=== PATIENT | female | born 1945 | race Caucasian/White ===

== ENCOUNTER 2022-01-10 16:40 | Emergency (ER) | payer MEDICARE, MEDICAID, SELFPAY ==
[2022-01-10 16:42] VITALS: BP 165/74; PULSE 83; RESP 16; TEMP 36.7; O2SAT 95; BMI 29.5
--- NOTE | 2022-01-10 16:57 | CT_ITS ---
STUDY: CT BRAIN WITHOUT CONTRAST REASON FOR EXAM: Female, 76 years old. Acute confusion RADIATION DOSAGE (If Supplied By Facility): CTDIvol = ( 44.99 ) mGy, DLP = ( 846.73 ) mGycm TECHNIQUE: Transaxial CT imaging of the brain was performed without administration of intravenous contrast material. Individualized dose optimization techniques were used for this CT. COMPARISON: No relevant priors. FINDINGS: Normal soft tissue structures. Normal calvarium. Mild calcific plaquing of cavernous carotids Mild atrophy and periventricular white matter ischemic changes.. Normal basal ganglia and thalami. Normal brainstem. Normal cerebellum. There is no intracranial hemorrhage. There are no findings of an acute ischemic infarction. Postsurgical changes. Mild mucosal thickening of left sphenoid sinus. CT/Brain/Head without Contrast IMPRESSION: Mild atrophy and periventricular white matter ischemic change. No acute bleed. If concern for acute infarct MRI recommended. Electronically Signed: Matias Franklin MD at 18:27 EDT ,
--- NOTE | 2022-01-10 16:58 | EDS_ITS ---
HPI History of Present Illness Chief Complaint: Confusion Detail of Chief Complaint: Patient states left leg pain Informant: patient and friend Onset/Context/Timing Onset: Days (Confusion started several days ago after she was prescribed Flexeril) and Month(s) (The left leg pain has been an issue for months) Context: Sudden Onset Timing: Continuous and Waxes and wanes Quality: Disorientation, difficulty remembering things Location: Not applicable Current Severity: Moderate Maximum Severity: Moderate Worsened by: Nothing per patient Relieved by: Nothing per patient Associated Symptoms Associated Symptoms: Nothing per patient Narrative Narrative: Patient is a 76-year-old woman with history of intermittent chronic left lower extremity pain. She believes she has hypertension. She was seen at [facility]. She was prescribed Flexeril 10 mg 3 times daily on January 06. She denies headache. She denies double vision, blurred vision loss of vision. Denies ringing in ears or decreased hearing. She denies rhinorrhea, congestion postnasal drainage. Denies sore throat. She has had no slurring of her words. She has difficulty remembering what she wants to say. She denies chest pain. She denies respiratory symptoms. She denies nausea, vomiting diarrhea. She denies urologic symptoms. She denies paresthesia, anesthesia or motor weakness. She lives with her older son. Her neighbor who is a good friend drove her to the emergency department. She is a former smoker. Prior similar symptoms: No Recent Illness/Hospitalization: Yes (For chronic left lower extremity pain) [facility] Medical History (Updated 01/10/22 @ 18:[address] Zack Garnica MD) HTN (hypertension) Hypothyroid Medical History unable to obtain unable to obtain Home Medications cyclobenzaprine 10 mg tablet 10 mg PO TID PRN Muscle Pain 01/10/22 [History Last Taken Unknown] Allergy/AdvReac Type Severity Reaction Status Date / Time naproxen [From Aleve] Allergy Angioedema Verified 01/10/22 16:46 Family History unable to obtain unable to obtain Surgical History (Updated 01/10/22 @ 17:06 by Althea Hernandez) History of cholecystectomy Hx of appendectomy Total knee replacement status Surgical History unable to obtain unable to obtain Social History (Updated 01/10/22 @ 17:[address] Zack Garnica MD) household members: family Smoking Status: Former smoker substance use type: does not use ROS ROS ED Review of Systems ROS Unobtainable: other Details: Patient is not a reliable informant. Constitutional Constitutional ED: Denies chills or fever(s) Eyes Eyes: Denies blurry vision, change in vision or diplopia ENT ENT ED: Denies ear pain, rhinorrhea or sore throat Cardiovascular Cardiovascular: Denies chest pain or palpitations Respiratory/Chest Respiratory/Chest: Denies cough, dyspnea or dyspnea on exertion Gastrointestinal Gastrointestinal: Denies abdominal pain, diarrhea, nausea or vomiting Genitourinary Genitourinary ED: Denies dysuria, hematuria or urinary frequency Musculoskeletal Musculoskeletal: Reports other Details: Chronic left lower extremity pain that denies history of PAD or claudication. ; Denies arthralgias, back pain, myalgias or neck pain Neurologic Neurologic: Denies headache(s) or paresthesias Hematologic/Lymphatic Hematologic/Lymphatic: Denies anemia, easy bleeding, easy bruising or lymphadenopathy EXAM Physical Exam Narrative Exam Narrative: Patient is a pleasant elderly woman who is confused. She appears in no distress. Const Vital Signs: 01/10/22 16:42 01/10/22 16:42 01/10/22 17:42 Temperature 98.1 F 98.1 F Temperature Source Temporal Temporal Pulse Rate 83 83 77 Respiratory Rate 16 16 19 H Blood Pressure 165/74 H 165/74 H 182/85 H Blood Pressure Mean 104 104 117 Pulse Ox 95 95 Oxygen Delivery Method Room Air Room Air Positive well nourished and well developed; Negative for cachectic, contractures or unkempt General Appearance ED: well developed and NAD; Negative for unkempt, cachectic, contractures, cyanotic, diaphoretic or pallor Nutritional Appearance: Negative for cachectic HEENT Reports moist mucous membranes HEENT Narrative: Head is atraumatic normocephalic. Ears normal. Nares patent. There is no exudate. Posterior Prantal erythema or exudate. Uvula midline. Eyes PERRL and EOMs intact bilaterally Eyes Narrative: There is no nystagmus. There is no APD. Difficult to see fundi. General Eye ED: Negative for pale conjunctiva or scleral icterus Neck no lymphadenopathy, supple and no JVD Resp normal respiratory effort and clear to auscultation bilaterally Cardio regular rate, regular rhythm, S1 normal heart sound, S2 normal heart sound and no murmurs GI normal to inspection, nondistended, normoactive bowel sounds, non-tender, non- distended and no masses; Negative for hepatosplenomegaly GI Narrative: There is no palpable mass or abdominal bruit. Back/Spine no CVA tenderness Cervical Spine: Negative for cervical spine tenderness Thoracic Spine / Upper Back: Negative for thoracic spinal tenderness Lumbar Spine / Lower Back: Negative for lumbar spinal tenderness Extremity normal to inspection Extremity Narrative: DP and PT pulse are 2+ and symmetric. There is no asymmetry, discoloration, leg vein distention, palpable cord sounds on the distribution deep venous system. General Extremety ED: Negative for edema or tenderness General Extremity: Negative for edema Neuro No oriented x3, No CN's II-XII intact bilaterally and no sensory deficits noted Neuro Narrative: Patient is disoriented to time. Sensorium / Orientation: alert and orientation impaired; Negative for lethargic or stuporous Motor Exam: strength 5/5 throughout Psych Psych Narrative: Patient has a flat affect. Appearance: Negative for unkempt Attitude: No agitated Mood & Affect: Negative for tearful Skin no rashes or lesions noted and no wounds General Skin Exam: Negative for jaundice or pallor MDM MDM MDM Narrative Medical decision making narrative: Patient's confusion started after prescription for cyclobenzaprine. Cyclobenzaprine is on the beers list. Cyclobenzaprine has known adverse reaction causing change in mental status to dementia. Since her neuro exam is nonfocal suspect this is the cause. Will obtain blood work, UA and CT to evaluate for metabolic as well as infectious and organic causes. CT of the head without contrast was independently reviewed by me at 1719. There is no acute abnormality noted. There is no evidence of sinusitis. Awaiting formal read by radiologist. With a negative work-up and onset after patient was prescribed cyclobenzaprine suspect this is the cause. Patient was made aware to discontinue the muscle relaxant. She was informed her confusion may be permanent. Lab Data Attestation: I reviewed the patient's lab results. Labs: Laboratory Results - last 24 hr 01/10/22 01/10/22 01/10/22 17:05 17:05 17:30 WBC 10.3 RBC 4.31 Hgb 13.3 Hct 39.4 MCV 91.4 MCH 30.9 MCHC 33.8 RDW Std Deviation 41.2 RDW Coeff of Yanick 12.3 Plt Count 252 MPV 10.6 Immature Gran % (Auto) 0.600 Neut % (Auto) 86.6 H Lymph % (Auto) 11.5 L [place] % (Auto) 1.1 Eos % (Auto) 0.0 Baso % (Auto) 0.2 Absolute Neuts (auto) 8.9 H Absolute Lymphs (auto) 1.19 Nucleated RBC % 0 Sodium 139 Potassium 4.1 Chloride 105 Carbon Dioxide 27.0 Anion Gap 7 BUN 19 H Creatinine 1.22 H Estim Creat Clear Calc 34.75 Est GFR (MDRD) Af Amer 55 L Est GFR (MDRD) Non-Af 45 L BUN/Creatinine Ratio 15.6 Glucose 396 H Calcium 9.6 Total Bilirubin 0.70 AST 21 ALT 21 Alkaline Phosphatase 136 H Total Protein 7.8 Albumin 3.8 Globulin 4.0 Albumin/Globulin Ratio 1.0 Urine Color Straw Urine Clarity Clear Urine pH 7.0 Ur Specific [place] 1.010 Urine Protein 30 H Urine Glucose (UA) 1000 H Urine Ketones Negative Urine Occult Blood 10 H Urine Nitrite Negative Urine Bilirubin Negative Urine Urobilinogen Normal Ur Leukocyte Esterase Negative Urine RBC 0-5 SEEN Urine WBC 0-5 SEEN Ur Squamous Epith Cells 0-5 SEEN Urine Bacteria RARE Urine Mucus 0 SEEN Discharge Plan Triage Chief Complaint: Confusion ED Provider: Zack Garnica Dx/Rx/DC Orders Clinical Impression: Concussion with mental confusion or disorientation without loss of consciousness, Adverse effect of drug in therapeutic use Instructions: ED Confusion Prescriptions: No Action cyclobenzaprine [Flexeril] 10 mg Tablet 10 mg PO TID PRN (Reason: Muscle Pain) Primary Care Provider: Angelica Canchola Referrals: [facility] Doctor,Out of [NON-STAFF] - 1-2 Weeks Activity Restrictions/Additional Instructions: 1. Discontinue the cyclobenzaprine, muscle relaxant 2. Your confusion is due to an adverse reaction to the cyclobenzaprine. This may be permanent. Disposition Disposition: Home, Self Care
[2022-01-10 17:13] LABS: Absolute Lymphocyte Count 1.19 X10^3/uL (0.83-4.51); Absolute Neutrophil Count 8.9 X10^3/uL (2.0-7.7); Basophil# 0.02 X10^3/uL; Basophil% 0.2 % (0-1); Hematocrit 39.4 % (37-47); Hemoglobin 13.3 g/dL (12.0-15.0); Lymphocyte # 1.19 X10^3/ul (0.83-4.51); Lymphocyte % 11.5 % (19-41); Mean Corp Hgb Conc 33.8 g/dL (32-36); Mean Corpuscular Hgb 30.9 pg (27.0-32.0); Mean Corpuscular Volume 91.4 fL (81-99); Mean Platelet Vol. 10.6 fl (6.2-12.0); Monocyte# 0.11 X10^3/uL; Monocyte% 1.1 % (0-10); NRBC Flagged by Analyzer 0 % (0-5); Neutrophil # 8.93 X10^3/uL (2.7-7.7); Neutrophil % 86.6 % (47-70); Platelet Count 252 K/mm3 (150-450); RBC Distribution Width CV 12.3 % (11.6-14.6); RBC Distribution Width SD 41.2 fl (35.1-43.9); Red Blood Count 4.31 M/mm3 (4.2-5.4); White Blood Count 10.3 K/mm3 (4.4-11.0)
[2022-01-10 17:30] LABS: AST(SGOT) 21 U/L (15-37); Alanine Aminotransfer ALT/SGPT 21 U/L (13-56); Albumin, Serum 3.8 g/dL (3.2-5.0); Alkaline Phosphatase 136 U/L (45-117); Anion Gap 7 (5-15); BUN 19 mg/dL (7-18); BUN/Creat Ratio 15.6 RATIO (10-20); Calcium,Total 9.6 mg/dL (8.5-10.1); Chloride 105 mmol/L (98-107); Creatinine, Serum 1.22 mg/dL (0.55-1.02); EST Glomerular Filtration Rate 45 mL/min (>60); Est Glom Filt Rate - Afr Amer 55 mL/min (>60); Estimated Creatinine Clearance 34.75 ml/min; Glucose 396 mg/dL (74-106); Potassium 4.1 mmol/L (3.5-5.1); Protein, Total 7.8 g/dL (6.4-8.2); Sodium Level 139 mmol/L (136-145)
[2022-01-10 17:36] LABS: Mucous, Urine 0 SEEN /hpf (<or=2+)
[2022-01-10 17:42] VITALS: BP 182/85; PULSE 77; RESP 19
[2022-01-10 17:48] LABS: Color, Urine Straw (Yellow); Glucose, Dipstick 1000 mg/dl (Normal); Ketone-Dipstick Negative (Negative); Leukocyte Esterase-Dipstick Negative /ul (Negative); Nitrite-Dipstick Negative (Negative); Occult Blood-Urine 10 /ul (Negative); Protein-Dipstick 30 mg/dl (Negative); Urine Clarity Clear (Clear); Urine Urobilinogen Normal (Normal)
[2022-01-10 18:08] LABS: Red Blood Cells-Urine 0-5 SEEN /hpf (0-5); White Blood Cells 0-5 SEEN /hpf (0-5)
[2022-01-10 18:09] LABS: Bacteria RARE /hpf (None Seen); Squamous Epithelial Cells - UA 0-5 SEEN /hpf (5-10)
[2022-01-10 18:10] LABS: Urine Bilirubin Dipstick Negative (Negative)
[2022-01-10 18:25] VITALS: BP 175/81; PULSE 63; RESP 16; O2SAT 95
[2022-01-10 18:50] VITALS: BP 164/80
== END 2022-01-10 18:52 | disposition home or self-care (01) ==
PROVIDERS: Emergency Provider Emergency Medicine; PCP Internal Medicine; Visit Provider Emergency Medicine
DX: S06.0X0A Concussion without loss of consciousness, initial encounter (principal); M79.662 Pain in left lower leg; G89.29 Other chronic pain; Z87.891 Personal history of nicotine dependence; X58.XXXA Exposure to other specified factors, initial encounter; T48.1X5A Adverse effect of skeletal muscle relaxants [neuromuscular blocking agents], initial encounter; R41.0 Disorientation, unspecified
CPT/HCPCS: 70450; 80053; 81001; 85025; 99284; A4216

== ENCOUNTER 2024-07-12 16:51 | Observation (INO) | payer MEDICARE, SELFPAY ==
[2024-07-12 16:52] VITALS: BP 182/94; PULSE 89; RESP 18; TEMP 37; O2SAT 94
--- NOTE | 2024-07-12 20:02 | RAD_ITS ---
INDICATION: pain EXAMINATION/TECHNIQUE: X-RAY - XR Spine Thoracic 2 Views COMPARISON: FINDINGS: VERTEBRAE: Preserved vertebral body height. No fracture. No spondylolisthesis. Preservation of the normal thoracic kyphosis. No significant facet arthropathy. Mild spondylosis. DISCS: Disc spaces are maintained. INCLUDED CHEST/ABDOMEN: No acute abnormalities. RAD/Thoracic Spine 2 Views IMPRESSION: No evidence of thoracic spinal fracture or spondylolisthesis. Electronically Signed: Mala Juarez MD at 21:12 EST Reading Location ID and State: [id number] / Tel , Service support ,
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
[2024-07-12] MEDS: Lidocaine 5% Patch 1 PATCH TOPICAL (20:17)
[2024-07-12] MEDS: Acetaminophen 325 MG Tablet 650 MG PO (20:17)
[2024-07-12 20:20] VITALS: BP 171/81; PULSE 79; RESP 18; O2SAT 94; BMI 27.1
--- NOTE | 2024-07-12 20:25 | RAD_ITS ---
INDICATION: pain EXAMINATION/TECHNIQUE: X-RAY - XR Spine Lumbar 2 or 3 Views COMPARISON: FINDINGS: Mild dextroscoliosis. No evidence of fracture or acute subluxation. Chronic loss of height of the L3 vertebral body. Moderate disc space narrowing L3-4. Mild disc space narrowing L4-5. 8 mm anterolisthesis. Facet hypertrophy at L4-5. INCLUDED ABDOMEN: Included bowel gas pattern is non-obstructive. RAD/Lumbar Spine 2 or 3 Views IMPRESSION: No acute fracture. L4-5 anterolisthesis. Mild dextroscoliosis. Electronically Signed: Mala Juarez MD at 21:15 EST Reading Location ID and State: [id number] / Tel , Service support ,
--- NOTE | 2024-07-12 21:00 | CT_ITS ---
STUDY: CT BRAIN WITHOUT CONTRAST REASON FOR EXAM: Female, 79 years old. ams RADIATION DOSAGE (If Supplied By Facility): CTDIvol = ( 44.99 ) mGy, DLP = ( 829.85 ) mGycm TECHNIQUE: Transaxial CT imaging of the brain was performed without administration of intravenous contrast material. Individualized dose optimization techniques were used for this CT. COMPARISON: 01/10/2022. FINDINGS: Normal soft tissue structures. Normal calvarium. Normal size ventricles and extra-axial spaces for the patient''s age. Normal white matter tracts of the cerebral hemispheres. Normal basal ganglia and thalami. Normal brainstem. Normal cerebellum. There is no intracranial hemorrhage. There are no findings of an acute ischemic infarction. Normal visualized paranasal sinuses. CT/Brain/Head without Contrast IMPRESSION: Normal unenhanced CT scan of the brain. Electronically Signed: Mala Juarez MD at 21:59 EST Reading Location ID and State: [id number] / Tel , Service support ,
--- NOTE | 2024-07-12 21:00 | RAD_ITS ---
EXAM: XR CHEST, 1 VIEW CLINICAL INDICATION: ams TECHNIQUE: Frontal view of the chest. COMPARISON: No relevant prior studies available. FINDINGS: LUNGS AND PLEURAL SPACES: Unremarkable. No consolidation or edema. No pneumothorax. No effusion. HEART: Unremarkable. Cardiac silhouette not enlarged. MEDIASTINUM: Central airways and mediastinal contour are unremarkable. BONES/JOINTS: Degenerative changes in the left shoulder. No acute fracture. SOFT TISSUES: Unremarkable. RAD/Chest 1 View (Portable) IMPRESSION: No acute cardiopulmonary abnormality. Electronically Signed: Terrence Gary MD at 22:27 EST ,
[2024-07-12 21:17] LABS: Absolute Lymphocyte Count 1.41 X10^3/uL (0.83-4.51); Absolute Neutrophil Count 12.5 X10^3/uL (2.0-7.7); Basophil# 0.11 X10^3/uL; Basophil% 0.8 % (0-1); Eosinophil# 0.02 X10^3/uL; Eosinophils% 0.1 % (0-5); Hematocrit 40.3 % (37-47); Hemoglobin 13.5 g/dL (12.0-15.0); Lymphocyte # 1.41 X10^3/ul (0.83-4.51); Lymphocyte % 9.6 % (19-41); Mean Corp Hgb Conc 33.5 g/dL (32-36); Mean Corpuscular Hgb 31.7 pg (27.0-32.0); Mean Corpuscular Volume 94.6 fL (81-99); Mean Platelet Vol. 9.7 fl (6.2-12.0); Monocyte# 0.48 X10^3/uL; Monocyte% 3.3 % (0-10); NRBC Flagged by Analyzer 0 % (0-5); Neutrophil # 12.53 X10^3/uL (2.7-7.7); Neutrophil % 85.4 % (47-70); Platelet Count 311 K/mm3 (150-450); RBC Distribution Width CV 13.2 % (11.6-14.6); Red Blood Count 4.26 M/mm3 (4.2-5.4); White Blood Count 14.7 K/mm3 (4.4-11.0)
[2024-07-12 21:34] LABS: AST(SGOT) 19 U/L (15-37); Alanine Aminotransfer ALT/SGPT 14 U/L (13-56); Albumin, Serum 3.4 g/dL (3.2-5.0); Alkaline Phosphatase 83 U/L (45-117); Anion Gap 13 (5-15); BUN 17 mg/dL (7-18); BUN/Creat Ratio 22.5 RATIO (10-20); Bilirubin, Direct 0.48 mg/dL (0.00-0.30); Chloride 103 mmol/L (98-107); Creatinine, Serum 0.75 mg/dL (0.55-1.02); EST Glomerular Filtration Rate 79 mL/min (>60); Est Glom Filt Rate - Afr Amer 95 mL/min (>60); Estimated Creatinine Clearance 55.27 ml/min; Globulin 4.6 g/dL (2.2-4.2); Glucose 138 mg/dL (74-106); Potassium 3.5 mmol/L (3.5-5.1); Sodium Level 136 mmol/L (136-145)
[2024-07-12 21:46] LABS: Mucous, Urine 0 SEEN /hpf (<or=2+)
[2024-07-12] MEDS: 0.9% Normal Saline (1000mL) 1,000 ML 999 ML IV (21:51)
[2024-07-12 21:53] LABS: Color, Urine Yellow (Yellow); Glucose, Dipstick Normal (Normal); Ketone-Dipstick 50 mg/dl (Negative); Leukocyte Esterase-Dipstick 500 /ul (Negative); Nitrite-Dipstick Negative (Negative); Occult Blood-Urine 50 /ul (Negative); Protein-Dipstick 100 mg/dl (Negative); Specific Gravity, Urine 1.025 (1.002-1.030); Urine Clarity Sl. Cloudy (Clear); Urine Urobilinogen 1 mg/dl (Normal)
[2024-07-12 22:00] VITALS: BP 134/65; PULSE 78; RESP 14; O2SAT 97
[2024-07-12 22:03] LABS: Urine Bilirubin Dipstick 1 mg/dL (Negative)
[2024-07-12 22:08] LABS: Bacteria RARE /hpf (None Seen); Red Blood Cells-Urine 0-5 SEEN /hpf (0-5); Squamous Epithelial Cells - UA 0-5 SEEN /hpf (5-10); White Blood Cells 10-25 SEEN /hpf (0-5)
[2024-07-12 22:20] VITALS: BP 141/65; PULSE 73; RESP 14; TEMP 36.8; O2SAT 98
[2024-07-12 22:54] LABS: Allen Test Positive; Base Excess -6 mmol/L (-2 to +2); Bicarbonate 19.8 mmol/L (22-26); Blood Gas Specimen Type ART; Mode Not entered; O2 Delivery Device Room Air; PO2 74 mmHG (75-100); SITE L Radial; SO2 94 % (95-99); Total Carbon Dioxide 21 mmol/L; pCO2 35.8 mmHg (35-45); pH 7.35 (7.35-7.45)
[2024-07-12 22:59] LABS: Ammonia < 10.0 umol/L (11-32)
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
[2024-07-13] VITALS (7 sets, daily range): BP systolic 136–170; BP diastolic 69–87; PULSE 70–86; RESP 14–18; TEMP 36.4–36.6; O2SAT 93–98; BMI 27.0
[2024-07-13] MEDS: Menthol/Lanolin/Calamine/Znox 113 GM Tube 1 APPLIC TOPICAL ×3 (01:38→19:54)
[2024-07-13] MEDS: 0.9% Normal Saline (1000mL) 1,000 ML 75 ML IV (01:38)
[2024-07-13] MEDS: Ceftriaxone 1 GM/50 ML BAG IV ×2 (01:38→21:28)
[2024-07-13] MEDS: NYSTATIN 500,000 UNIT/5 ML UDC 500000 UNIT PO ×4 (01:39→21:28)
[2024-07-13] MEDS: Nystatin Powder 15gm Bottle 1 APPLIC TOPICAL ×3 (01:39→19:54)
[2024-07-13 05:06] LABS: Absolute Lymphocyte Count 1.82 X10^3/uL (0.83-4.51); Absolute Neutrophil Count 8.9 X10^3/uL (2.0-7.7); Basophil# 0.08 X10^3/uL; Basophil% 0.7 % (0-1); Eosinophil# 0.11 X10^3/uL; Hematocrit 39.4 % (37-47); Lymphocyte # 1.82 X10^3/ul (0.83-4.51); Lymphocyte % 15.7 % (19-41); Mean Corpuscular Hgb 31.2 pg (27.0-32.0); Mean Corpuscular Volume 94.5 fL (81-99); Mean Platelet Vol. 10.5 fl (6.2-12.0); Monocyte# 0.63 X10^3/uL; Monocyte% 5.4 % (0-10); NRBC Flagged by Analyzer 0 % (0-5); Neutrophil # 8.87 X10^3/uL (2.7-7.7); Neutrophil % 76.7 % (47-70); Platelet Count 301 K/mm3 (150-450); RBC Distribution Width CV 13.2 % (11.6-14.6); RBC Distribution Width SD 44.7 fl (35.1-43.9); Red Blood Count 4.17 M/mm3 (4.2-5.4); White Blood Count 11.6 K/mm3 (4.4-11.0)
[2024-07-13 05:44] LABS: ALB/GLOB Ratio 0.8 RATIO (0.9-2.4); AST(SGOT) 20 U/L (15-37); Alanine Aminotransfer ALT/SGPT 13 U/L (13-56); Albumin, Serum 3.3 g/dL (3.2-5.0); Alkaline Phosphatase 81 U/L (45-117); Anion Gap 11 (5-15); BUN 14 mg/dL (7-18); BUN/Creat Ratio 20.6 RATIO (10-20); Calcium,Total 9.1 mg/dL (8.5-10.1); Chloride 106 mmol/L (98-107); Creatinine, Serum 0.68 mg/dL (0.55-1.02); EST Glomerular Filtration Rate 88 mL/min (>60); Est Glom Filt Rate - Afr Amer 107 mL/min (>60); Estimated Creatinine Clearance 56.39 ml/min; Globulin 4.3 g/dL (2.2-4.2); Glucose 142 mg/dL (74-106); Phosphorus 2.3 mg/dL (2.5-4.9); Potassium 3.3 mmol/L (3.5-5.1); Protein, Total 7.6 g/dL (6.4-8.2); Sodium Level 137 mmol/L (136-145)
[2024-07-13 06:50] LABS: T4 Free Direct 0.65 ng/dL (0.76-1.46)
[2024-07-13 07:04] LABS: Bedside Glucose 129 mg/dL (74-106)
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
[2024-07-13] MEDS: Enoxaparin 40 MG/0.4 ML Syringe SC (09:25)
[2024-07-13 12:21] LABS: Bedside Glucose 132 mg/dL (74-106)
--- NOTE | 2024-07-13 15:53 | CASEMGMT ---
RN CM into pt room, discussed DC planning options with Pt. Pt would like to go to a SNF and then plans to move in with friends Kerry and Chin. Provided Pt with SNF list, top 2 choices are [facility] and [facility]. Notified WALI.
--- NOTE | 2024-07-13 15:54 | CASEMGMT ---
ANA LAURA CM in to discuss THOMAS form with patient. RN CM explained THOMAS form, patient voiced understanding. Pt signed form and filed in chart. Pt provided with a copy of signed THOMAS form. Patient had no further questions or concerns at this time.
--- NOTE | 2024-07-13 16:09 | CASEMGMT ---
Social Work Referral made via email to WALI MORALES to follow up on Monday. DANE Friend
[2024-07-13 16:56] LABS: Bedside Glucose 128 mg/dL (74-106)
[2024-07-13] MEDS: Acetaminophen 325 MG Tablet 650 MG PO (19:54)
[2024-07-13] MEDS: 0.9% Saline Lock 10 ML Syringe IV (21:28)
[2024-07-13 21:50] LABS: Bedside Glucose 115 mg/dL (74-106)
[2024-07-14 02:00] VITALS: BP 152/81; PULSE 83; RESP 16; TEMP 36.5; O2SAT 97
[2024-07-14 06:37] LABS: Absolute Lymphocyte Count 2.25 X10^3/uL (0.83-4.51); Absolute Neutrophil Count 5.7 X10^3/uL (2.0-7.7); Basophil# 0.09 X10^3/uL; Eosinophil# 0.23 X10^3/uL; Eosinophils% 2.6 % (0-5); Hematocrit 38.6 % (37-47); Hemoglobin 12.7 g/dL (12.0-15.0); Lymphocyte # 2.25 X10^3/ul (0.83-4.51); Lymphocyte % 25.5 % (19-41); Mean Corp Hgb Conc 32.9 g/dL (32-36); Mean Corpuscular Hgb 31.1 pg (27.0-32.0); Mean Corpuscular Volume 94.4 fL (81-99); Monocyte# 0.53 X10^3/uL; NRBC Flagged by Analyzer 0 % (0-5); Neutrophil # 5.68 X10^3/uL (2.7-7.7); Neutrophil % 64.6 % (47-70); Platelet Count 310 K/mm3 (150-450); RBC Distribution Width CV 12.8 % (11.6-14.6); Red Blood Count 4.09 M/mm3 (4.2-5.4); White Blood Count 8.8 K/mm3 (4.4-11.0)
[2024-07-14 06:48] LABS: Bedside Glucose 137 mg/dL (74-106)
[2024-07-14 07:12] LABS: Anion Gap 10 (5-15); BUN 9 mg/dL (7-18); BUN/Creat Ratio 14.6 RATIO (10-20); Calcium,Total 9.1 mg/dL (8.5-10.1); Chloride 104 mmol/L (98-107); Creatinine, Serum 0.62 mg/dL (0.55-1.02); EST Glomerular Filtration Rate 99 mL/min (>60); Est Glom Filt Rate - Afr Amer 120 mL/min (>60); Estimated Creatinine Clearance 56.39 ml/min; Glucose 124 mg/dL (74-106); Phosphorus 1.8 mg/dL (2.5-4.9); Potassium 3.2 mmol/L (3.5-5.1); Sodium Level 135 mmol/L (136-145)
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
[2024-07-14 08:56] VITALS: BP 163/74; PULSE 98; RESP 18; TEMP 36.4; O2SAT 97
[2024-07-14] MEDS: NYSTATIN 500,000 UNIT/5 ML UDC 500000 UNIT PO ×4 (09:00→20:47)
[2024-07-14] MEDS: Potassium Chloride Oral Tablet 20 MEQ 40 MEQ PO (09:00)
[2024-07-14] MEDS: Enoxaparin 40 MG/0.4 ML Syringe SC (09:00)
[2024-07-14] MEDS: Nystatin Powder 15gm Bottle 1 APPLIC TOPICAL ×2 (09:01→20:47)
[2024-07-14] MEDS: Menthol/Lanolin/Calamine/Znox 113 GM Tube 1 APPLIC TOPICAL ×2 (09:01→20:47)
[2024-07-14] MEDS: Na Biphos/Potassium Phosphate PACKET 1 PACKET PO ×2 (09:07→20:48)
[2024-07-14] MEDS: amLODIPine 5 MG Tablet PO (10:06)
[2024-07-14 12:11] LABS: Bedside Glucose 143 mg/dL (74-106)
[2024-07-14 14:09] VITALS: BP 150/74; PULSE 94; RESP 18; TEMP 36.6; O2SAT 96
[2024-07-14] MEDS: Acetaminophen 325 MG Tablet 650 MG PO (16:22)
[2024-07-14] MEDS: Potassium Chloride Oral Tablet 20 MEQ PO (16:22)
[2024-07-14 16:47] LABS: Bedside Glucose 137 mg/dL (74-106)
[2024-07-14 20:45] VITALS: BP 154/89; PULSE 82; RESP 16; TEMP 36.6; O2SAT 94
[2024-07-14] MEDS: Ceftriaxone 1 GM/50 ML BAG IV (21:03)
[2024-07-14] MEDS: 0.9% Saline Lock 10 ML Syringe IV (21:04)
[2024-07-14 22:51] LABS: Bedside Glucose 122 mg/dL (74-106)
[2024-07-15] MEDS: Acetaminophen 325 MG Tablet 650 MG PO ×2 (02:18→11:53)
[2024-07-15 02:30] VITALS: BP 144/94; PULSE 80; RESP 16; TEMP 36.6; O2SAT 95
[2024-07-15 06:42] LABS: Bedside Glucose 132 mg/dL (74-106)
[2024-07-15 06:46] LABS: Absolute Lymphocyte Count 2.04 X10^3/uL (0.83-4.51); Basophil# 0.08 X10^3/uL; Basophil% 0.9 % (0-1); Eosinophil# 0.27 X10^3/uL; Hemoglobin 12.7 g/dL (12.0-15.0); Lymphocyte # 2.04 X10^3/ul (0.83-4.51); Lymphocyte % 22.9 % (19-41); Mean Corp Hgb Conc 33.4 g/dL (32-36); Mean Corpuscular Hgb 31.1 pg (27.0-32.0); Mean Corpuscular Volume 93.1 fL (81-99); Mean Platelet Vol. 10.1 fl (6.2-12.0); Monocyte# 0.54 X10^3/uL; Monocyte% 6.1 % (0-10); NRBC Flagged by Analyzer 0 % (0-5); Neutrophil # 5.95 X10^3/uL (2.7-7.7); Neutrophil % 66.8 % (47-70); Platelet Count 315 K/mm3 (150-450); RBC Distribution Width CV 13.1 % (11.6-14.6); RBC Distribution Width SD 44.4 fl (35.1-43.9); Red Blood Count 4.08 M/mm3 (4.2-5.4); White Blood Count 8.9 K/mm3 (4.4-11.0)
[2024-07-15 07:11] LABS: Anion Gap 6 (5-15); BUN 8 mg/dL (7-18); BUN/Creat Ratio 11.7 RATIO (10-20); Chloride 106 mmol/L (98-107); Creatinine, Serum 0.68 mg/dL (0.55-1.02); EST Glomerular Filtration Rate 88 mL/min (>60); Est Glom Filt Rate - Afr Amer 106 mL/min (>60); Estimated Creatinine Clearance 56.39 ml/min; Glucose 139 mg/dL (74-106); Potassium 3.3 mmol/L (3.5-5.1); Sodium Level 136 mmol/L (136-145)
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
[2024-07-15 07:31] VITALS: BP 134/75; PULSE 79; RESP 16; TEMP 36.7; O2SAT 95
[2024-07-15] MEDS: Potassium Chloride Oral Tablet 20 MEQ 40 MEQ PO (07:43)
[2024-07-15] MEDS: Potassium Chloride Oral Tablet 20 MEQ PO (07:43)
[2024-07-15 07:55] VITALS: O2SAT 92
[2024-07-15] MEDS: Na Biphos/Potassium Phosphate PACKET 1 PACKET PO (10:22)
[2024-07-15] MEDS: NYSTATIN 500,000 UNIT/5 ML UDC 500000 UNIT PO ×2 (10:22→13:35)
[2024-07-15] MEDS: Enoxaparin 40 MG/0.4 ML Syringe SC (10:22)
[2024-07-15] MEDS: Nystatin Powder 15gm Bottle 1 APPLIC TOPICAL (10:23)
[2024-07-15] MEDS: Menthol/Lanolin/Calamine/Znox 113 GM Tube 1 APPLIC TOPICAL (10:23)
[2024-07-15] MEDS: amLODIPine 5 MG Tablet PO (10:26)
[2024-07-15] MEDS: Insulin Lispro 100 UNIT/ML INSULN.PEN SC (11:49)
[2024-07-15 12:14] LABS: Bedside Glucose 166 mg/dL (74-106)
[2024-07-15 13:31] VITALS: BP 134/61; PULSE 83; RESP 16; TEMP 36.6; O2SAT 93
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
--- NOTE | 2024-07-15 14:43 | CASEMGMT ---
Social Work- SW received notice of precert. Physician updated and feels pt is medically ready for discharge. SW faxed documentation to TCU. SW updated pt and left a voicemail for pt son to update. Plan: TCU; skilled level of care IGNACIO Ramos
== END 2024-07-15 15:53 | disposition skilled nursing facility (03) ==
LOC: ED 23:24 → MS3 07-13 00:16
PROVIDERS: Admitting Provider Internal Medicine; Emergency Provider Emergency Medicine; PCP Internal Medicine; Referring Provider Emergency Medicine; Visit Provider Internal Medicine
DX: T50.901A Poisoning by unspecified drugs, medicaments and biological substances, accidental (unintentional), initial encounter (principal); E11.9 Type 2 diabetes mellitus without complications; S29.019A Strain of muscle and tendon of unspecified wall of thorax, initial encounter; S39.012A Strain of muscle, fascia and tendon of lower back, initial encounter; D72.829 Elevated white blood cell count, unspecified; E87.6 Hypokalemia; Z87.891 Personal history of nicotine dependence; I10 Essential (primary) hypertension; E80.6 Other disorders of bilirubin metabolism; V48.5XXA Car driver injured in noncollision transport accident in traffic accident, initial encounter; Z79.899 Other long term (current) drug therapy; Z79.84 Long term (current) use of oral hypoglycemic drugs; N30.00 Acute cystitis without hematuria; G92.8 Other toxic encephalopathy; E03.9 Hypothyroidism, unspecified
CPT/HCPCS: 36415; 36600; 70450; 71045; 72070; 72100; 80048; 80053; 80076; 81001; 82140; 82803; 82962; 83735; 84100; 84439; 84443; 85025; 87077; 87086; 87088; 96361; 96365; 96366; 96372; 97162; 97165; 97535; 99221; 99285; A4216; G0378

== ENCOUNTER 2024-07-15 16:02 | Inpatient (IN) | payer MEDICARE, SELFPAY ==
[2024-07-15 16:17] VITALS: BP 145/78; PULSE 84; RESP 16; RESP 18; TEMP 36.4; O2SAT 95; BMI 25.9; BMI 26.7
[2024-07-15 17:00] LABS: Bedside Glucose 148 mg/dL (74-106)
[2024-07-15] MEDS: 0.9% Saline Lock 10 ML Syringe IV (19:49)
[2024-07-15] MEDS: Potassium Chloride Oral Tablet 20 MEQ PO (19:49)
[2024-07-15] MEDS: metFORMIN HCl 1,000 MG Tablet 1000 MG PO (19:50)
[2024-07-15] MEDS: NYSTATIN 500,000 UNIT/5 ML UDC 500000 UNIT PO (19:51)
[2024-07-15] MEDS: Clotrimazole/Betamethasone 1 Tube 1 APPLIC TOPICAL (19:52)
[2024-07-15] MEDS: Na Biphos/Potassium Phosphate PACKET 1 PACKET PO (19:52)
[2024-07-15] MEDS: Acetaminophen 325 MG Tablet 650 MG PO (19:55)
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
[2024-07-15 21:32] LABS: Bedside Glucose 183 mg/dL (74-106)
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
--- NOTE | 2024-07-16 02:33 | NURSING ---
This nurse received call from Jim Charles, patient's son, at approximately 0140 this morning. Patient questioned how his mother was doing. This nurse reported patient was adjusting well and has been resting throughout the shift with no complaints. Son replied, well I know that, did they figure out what's going on. This nurse reported to son that she was not his mother's nurse and asked him if he would like to talk directly to her nurse for better assistance to any questions he has. Son replied, Well yeah, and snickered at this nurse. This nurse then put patient on hold and communicated to JE Saldivar, that the patient's son is requesting to speak with him. This nurse overheard MANAGER OF CREATIVE SERVICES's attempt to answer son's questions, but he was frequently interrupted by patient's son. Son dissatisfied with answers and began asking for first and last names of staff including doctor scheduler conveyor, and then he concluded the call.
[2024-07-16] MEDS: Enoxaparin 40 MG/0.4 ML Syringe SC (05:42)
[2024-07-16] MEDS: NYSTATIN 500,000 UNIT/5 ML UDC 500000 UNIT PO ×4 (05:42→21:34)
[2024-07-16] MEDS: Acetaminophen 500 MG Tablet 1000 MG PO ×3 (05:49→21:37)
[2024-07-16 06:11] LABS: Absolute Lymphocyte Count 1.85 X10^3/uL (0.83-4.51); Absolute Neutrophil Count 4.7 X10^3/uL (2.0-7.7); Basophil# 0.08 X10^3/uL; Basophil% 1.1 % (0-1); Eosinophil# 0.27 X10^3/uL; Eosinophils% 3.7 % (0-5); Hematocrit 40.8 % (37-47); Hemoglobin 13.4 g/dL (12.0-15.0); Lymphocyte # 1.85 X10^3/ul (0.83-4.51); Lymphocyte % 25.2 % (19-41); Mean Corp Hgb Conc 32.8 g/dL (32-36); Mean Corpuscular Hgb 31.4 pg (27.0-32.0); Mean Corpuscular Volume 95.6 fL (81-99); Mean Platelet Vol. 10.2 fl (6.2-12.0); Monocyte# 0.44 X10^3/uL; NRBC Flagged by Analyzer 0 % (0-5); Neutrophil # 4.66 X10^3/uL (2.7-7.7); Neutrophil % 63.3 % (47-70); Platelet Count 321 K/mm3 (150-450); RBC Distribution Width CV 13.3 % (11.6-14.6); RBC Distribution Width SD 46.5 fl (35.1-43.9); Red Blood Count 4.27 M/mm3 (4.2-5.4); White Blood Count 7.4 K/mm3 (4.4-11.0)
[2024-07-16 06:14] LABS: Anion Gap 4 (5-15); BUN 9 mg/dL (7-18); BUN/Creat Ratio 11.3 RATIO (10-20); Calcium,Total 9.4 mg/dL (8.5-10.1); Chloride 106 mmol/L (98-107); EST Glomerular Filtration Rate 74 mL/min (>60); Est Glom Filt Rate - Afr Amer 89 mL/min (>60); Estimated Creatinine Clearance 57.35 ml/min; Glucose 155 mg/dL (74-106); Potassium 4.1 mmol/L (3.5-5.1); Sodium Level 136 mmol/L (136-145)
[2024-07-16 06:33] LABS: Bedside Glucose 166 mg/dL (74-106)
[2024-07-16 08:11] VITALS: O2SAT 95
[2024-07-16] MEDS: Clotrimazole/Betamethasone 1 Tube 1 APPLIC TOPICAL ×2 (09:29→21:34)
[2024-07-16] MEDS: metFORMIN HCl 1,000 MG Tablet 1000 MG PO ×2 (09:33→17:40)
[2024-07-16] MEDS: Na Biphos/Potassium Phosphate PACKET 1 PACKET PO ×2 (09:34→21:34)
[2024-07-16] MEDS: FLUCONAZOLE 150 MG TABLET PO (09:34)
[2024-07-16] MEDS: Potassium Chloride Oral Tablet 20 MEQ PO ×2 (09:34→17:40)
[2024-07-16] MEDS: Tuberculin,Purif.prot.deriv. 50 TU/ML Vial 0.1 ML ID (09:43)
[2024-07-16] MEDS: FLU VACCINE **HIGH DOSE** TV 24-25 180 MCG/0.5 ML SYRINGE IM (09:45)
[2024-07-16] MEDS: 0.9% Saline Lock 10 ML Syringe IV (09:49)
[2024-07-16 09:54] VITALS: BP 127/71; PULSE 89; RESP 16; O2SAT 96
[2024-07-16 10:15] VITALS: PULSE 81; RESP 18; O2SAT 92
--- NOTE | 2024-07-16 10:19 | NURSING ---
FLU VACCINE GIVEN IN LT DELT. PT TOLERATED WELL. WILL CONTINUE TO MONITOR.
[2024-07-16 10:41] VITALS: BMI 26.2
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
[2024-07-16 11:25] LABS: Bedside Glucose 193 mg/dL (74-106)
[2024-07-16 14:55] VITALS: TEMP 36.6
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
[2024-07-16] MEDS: COVID VAC 24-25 (12UP)(MODERNA)/PF 50 MCG/0.5 ML SYRINGE IM (17:37)
[2024-07-16 17:39] LABS: Bedside Glucose 125 mg/dL (74-106)
--- NOTE | 2024-07-16 17:43 | NURSING ---
PT RECEIVED COVID VACCINE IN RT DELT.PT TOLERATED WELL. WILL CONTINUE TO MONITOR.
[2024-07-16 20:57] LABS: Hemoglobin A1c 6.6 % (3.8-5.6)
[2024-07-16 22:08] LABS: Bedside Glucose 108 mg/dL (74-106)
[2024-07-17] MEDS: Acetaminophen 500 MG Tablet 1000 MG PO ×3 (06:04→21:18)
[2024-07-17] MEDS: NYSTATIN 500,000 UNIT/5 ML UDC 500000 UNIT PO ×4 (06:06→21:17)
[2024-07-17] MEDS: Enoxaparin 40 MG/0.4 ML Syringe SC (06:06)
[2024-07-17 06:21] LABS: Bedside Glucose 136 mg/dL (74-106)
[2024-07-17] MEDS: Na Biphos/Potassium Phosphate PACKET 1 PACKET PO ×2 (09:11→21:17)
[2024-07-17] MEDS: Clotrimazole/Betamethasone 1 Tube 1 APPLIC TOPICAL ×2 (09:11→21:17)
[2024-07-17] MEDS: Potassium Chloride Oral Tablet 20 MEQ PO ×2 (09:12→17:17)
[2024-07-17] MEDS: metFORMIN HCl 1,000 MG Tablet 1000 MG PO ×2 (09:12→17:17)
[2024-07-17] MEDS: FLUCONAZOLE 150 MG TABLET PO (09:13)
[2024-07-17 09:17] VITALS: BP 125/63; PULSE 90; RESP 18; O2SAT 94
[2024-07-17 11:50] LABS: Bedside Glucose 160 mg/dL (74-106)
--- NOTE | 2024-07-17 13:51 | NURSING ---
Flat Cutter Note; Activity Asset: Xiomara Robles is independent in her choice of group/independent activities w/reminders. She has a lot of family and friends visiting and they brought her word puzzles, books and personal items from home. She stated she will read her book, watch tv and welcomes visit from the radiotelegraph operator and therapy dog. Staff will encourage social activities, remind her of group/in room activities and respect her right to say no.
[2024-07-17 16:00] VITALS: TEMP 36.3
[2024-07-17 17:08] LABS: Bedside Glucose 129 mg/dL (74-106)
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
[2024-07-17 18:00] VITALS: PULSE 95; RESP 18; O2SAT 97
[2024-07-17 21:31] LABS: Bedside Glucose 128 mg/dL (74-106)
[2024-07-18] MEDS: NYSTATIN 500,000 UNIT/5 ML UDC 500000 UNIT PO ×4 (05:24→21:01)
[2024-07-18] MEDS: Enoxaparin 40 MG/0.4 ML Syringe SC (05:25)
[2024-07-18] MEDS: Acetaminophen 500 MG Tablet 1000 MG PO ×3 (05:29→21:12)
[2024-07-18 07:02] LABS: Bedside Glucose 147 mg/dL (74-106)
[2024-07-18 09:00] VITALS: BP 127/67; PULSE 86; RESP 16; TEMP 36.5; O2SAT 95
[2024-07-18] MEDS: metFORMIN HCl 1,000 MG Tablet 1000 MG PO ×2 (09:28→17:43)
[2024-07-18] MEDS: Na Biphos/Potassium Phosphate PACKET 1 PACKET PO ×2 (09:29→21:01)
[2024-07-18] MEDS: FLUCONAZOLE 150 MG TABLET PO (09:29)
[2024-07-18] MEDS: Potassium Chloride Oral Tablet 20 MEQ PO ×2 (09:29→17:42)
[2024-07-18] MEDS: Clotrimazole/Betamethasone 1 Tube 1 APPLIC TOPICAL ×2 (09:29→21:02)
[2024-07-18 11:49] LABS: Bedside Glucose 132 mg/dL (74-106)
--- NOTE | 2024-07-18 15:56 | CHAPLAIN ---
Type of Pastoral Visit ___ Initial Visit _x__ Follow-up Visit ___ On-call Visit ___ General Patient Visit ___ Spiritual Assessment ___ Family Conference ___ Bereavement ___ Rapid Response ___ Code Blue ___ Other (describe below) Pastoral Care Referral From _x__ Patient ___ Family ___ Nurse ___ Physician ___ Aurist ___ Relief Master ___ Other (describe below) Sacrament/Intervention _x__ Active listening ___ Anointing ___ Latter Day ___ Bereavement ___ Communion ___ Padmini exploration ___ ___ Life review ___ Prayer ___ Reconciliation ___ Sacrament of Sick _x__ Supportive presence ___ Wedding ___ Other (describe below) Pastoral Comments follow up to patient that was seen a couple of days ago in [facility]; pt is pleased to have arrived in TCU so soon and has started her therapy; pt admits to being very tired the first day but is encouraged by progress on the second day; pt anticipates having friends visit today and she is looking forward; pt smiles and talks with a positive attitude
--- NOTE | 2024-07-18 16:34 | CASEMGMT ---
Addendum entered by Humaira Whyte 07/23/24 13:11: Medicaid pending number received: [id number] Original Note: Social Work SW referred to Jemima at [facility] and she will visit with pt tomorrow to address Medicaid eligibility. Humaira Whyte MSW BIOFUELS PRODUCTION MANAGER
[2024-07-18 16:49] LABS: Bedside Glucose 104 mg/dL (74-106)
[2024-07-18 21:47] LABS: Bedside Glucose 108 mg/dL (74-106)
[2024-07-19] MEDS: NYSTATIN 500,000 UNIT/5 ML UDC 500000 UNIT PO ×4 (05:39→20:31)
[2024-07-19] MEDS: Enoxaparin 40 MG/0.4 ML Syringe SC (05:39)
[2024-07-19] MEDS: Acetaminophen 500 MG Tablet 1000 MG PO ×3 (05:39→20:36)
[2024-07-19 06:21] LABS: Bedside Glucose 108 mg/dL (74-106)
[2024-07-19 09:00] VITALS: BP 118/68; PULSE 80; RESP 16; TEMP 36.2; O2SAT 97
[2024-07-19] MEDS: Na Biphos/Potassium Phosphate PACKET 1 PACKET PO ×2 (09:09→20:31)
[2024-07-19] MEDS: Potassium Chloride Oral Tablet 20 MEQ PO ×2 (09:09→16:55)
[2024-07-19] MEDS: metFORMIN HCl 1,000 MG Tablet 1000 MG PO ×2 (09:09→16:55)
[2024-07-19] MEDS: FLUCONAZOLE 150 MG TABLET PO (09:09)
[2024-07-19] MEDS: Clotrimazole/Betamethasone 1 Tube 1 APPLIC TOPICAL ×2 (09:12→20:32)
--- NOTE | 2024-07-19 11:46 | CASEMGMT ---
Social Work SW completed referral for Care Coordination Program through [facility] via website. JAYLON ParikhW
[2024-07-19 11:55] LABS: Bedside Glucose 111 mg/dL (74-106)
[2024-07-19 16:55] LABS: Bedside Glucose 106 mg/dL (74-106)
[2024-07-19 21:53] LABS: Bedside Glucose 121 mg/dL (74-106)
[2024-07-20] MEDS: Acetaminophen 500 MG Tablet 1000 MG PO ×3 (05:42→21:18)
[2024-07-20] MEDS: NYSTATIN 500,000 UNIT/5 ML UDC 500000 UNIT PO ×4 (05:42→21:13)
[2024-07-20] MEDS: Enoxaparin 40 MG/0.4 ML Syringe SC (05:42)
[2024-07-20 06:18] LABS: Bedside Glucose 120 mg/dL (74-106)
[2024-07-20] MEDS: metFORMIN HCl 1,000 MG Tablet 1000 MG PO ×2 (09:45→17:39)
[2024-07-20] MEDS: Potassium Chloride Oral Tablet 20 MEQ PO ×2 (09:45→17:39)
[2024-07-20] MEDS: Na Biphos/Potassium Phosphate PACKET 1 PACKET PO ×2 (09:45→21:13)
[2024-07-20] MEDS: FLUCONAZOLE 150 MG TABLET PO (09:45)
[2024-07-20 09:58] VITALS: BP 132/73; PULSE 84; RESP 18; O2SAT 95
[2024-07-20] MEDS: Clotrimazole/Betamethasone 1 Tube 1 APPLIC TOPICAL ×2 (10:32→21:13)
[2024-07-20 12:29] LABS: Bedside Glucose 103 mg/dL (74-106)
[2024-07-20 13:15] VITALS: TEMP 36.9
[2024-07-20 16:47] LABS: Bedside Glucose 119 mg/dL (74-106)
[2024-07-20 21:09] LABS: Bedside Glucose 143 mg/dL (74-106)
[2024-07-21] MEDS: Enoxaparin 40 MG/0.4 ML Syringe SC (06:15)
[2024-07-21] MEDS: NYSTATIN 500,000 UNIT/5 ML UDC 500000 UNIT PO ×4 (06:15→20:39)
[2024-07-21] MEDS: Acetaminophen 500 MG Tablet 1000 MG PO ×2 (06:16→17:09)
[2024-07-21 06:23] LABS: Bedside Glucose 96 mg/dL (74-106)
[2024-07-21] MEDS: metFORMIN HCl 1,000 MG Tablet 1000 MG PO (09:03)
[2024-07-21] MEDS: Potassium Chloride Oral Tablet 20 MEQ PO ×2 (09:04→17:10)
[2024-07-21] MEDS: FLUCONAZOLE 150 MG TABLET PO (09:04)
[2024-07-21] MEDS: Clotrimazole/Betamethasone 1 Tube 1 APPLIC TOPICAL ×2 (09:04→20:39)
[2024-07-21] MEDS: Na Biphos/Potassium Phosphate PACKET 1 PACKET PO ×2 (09:05→20:39)
[2024-07-21 09:09] VITALS: BP 130/68; PULSE 70; RESP 18; O2SAT 97
[2024-07-21 11:55] LABS: Bedside Glucose 99 mg/dL (74-106)
[2024-07-21 13:41] VITALS: TEMP 36.4
[2024-07-21 17:21] LABS: Bedside Glucose 115 mg/dL (74-106)
[2024-07-21] MEDS: metFORMIN HCl 500 MG Tablet PO (17:45)
[2024-07-21 21:39] LABS: Bedside Glucose 137 mg/dL (74-106)
[2024-07-22] MEDS: Acetaminophen 500 MG Tablet 1000 MG PO ×2 (01:21→18:44)
[2024-07-22] MEDS: Enoxaparin 40 MG/0.4 ML Syringe SC (06:01)
[2024-07-22] MEDS: NYSTATIN 500,000 UNIT/5 ML UDC 500000 UNIT PO ×4 (06:01→21:10)
[2024-07-22 06:15] LABS: Bedside Glucose 104 mg/dL (74-106)
[2024-07-22] MEDS: Potassium Chloride Oral Tablet 20 MEQ PO ×2 (08:54→17:33)
[2024-07-22] MEDS: FLUCONAZOLE 150 MG TABLET PO (08:54)
[2024-07-22] MEDS: Na Biphos/Potassium Phosphate PACKET 1 PACKET PO ×2 (08:54→21:10)
[2024-07-22] MEDS: Clotrimazole/Betamethasone 1 Tube 1 APPLIC TOPICAL ×2 (08:55→21:10)
[2024-07-22] MEDS: metFORMIN HCl 500 MG Tablet PO ×2 (08:55→17:34)
--- NOTE | 2024-07-22 09:08 | NURSING ---
Associate Director Of Biostatistics Note; MDS for 07/22/2024 Complete
[2024-07-22 10:00] VITALS: BP 124/61; PULSE 74; RESP 16; TEMP 36.3; O2SAT 95
[2024-07-22 11:37] LABS: Bedside Glucose 121 mg/dL (74-106)
[2024-07-22 16:44] LABS: Bedside Glucose 112 mg/dL (74-106)
[2024-07-22 21:00] VITALS: PULSE 76; RESP 16; O2SAT 93
[2024-07-22 21:29] LABS: Bedside Glucose 98 mg/dL (74-106)
[2024-07-23] MEDS: Enoxaparin 40 MG/0.4 ML Syringe SC (05:33)
[2024-07-23] MEDS: NYSTATIN 500,000 UNIT/5 ML UDC 500000 UNIT PO ×4 (05:35→20:46)
[2024-07-23 05:56] LABS: Absolute Lymphocyte Count 2.78 X10^3/uL (0.83-4.51); Absolute Neutrophil Count 3.1 X10^3/uL (2.0-7.7); Basophil# 0.09 X10^3/uL; Basophil% 1.4 % (0-1); Eosinophil# 0.19 X10^3/uL; Eosinophils% 2.9 % (0-5); Hematocrit 39.5 % (37-47); Hemoglobin 13.3 g/dL (12.0-15.0); Lymphocyte # 2.78 X10^3/ul (0.83-4.51); Lymphocyte % 42.7 % (19-41); Mean Corp Hgb Conc 33.7 g/dL (32-36); Mean Corpuscular Hgb 31.7 pg (27.0-32.0); Mean Corpuscular Volume 94.3 fL (81-99); Mean Platelet Vol. 10.1 fl (6.2-12.0); Monocyte# 0.31 X10^3/uL; Monocyte% 4.8 % (0-10); NRBC Flagged by Analyzer 0 % (0-5); Neutrophil # 3.11 X10^3/uL (2.7-7.7); Neutrophil % 47.7 % (47-70); Platelet Count 320 K/mm3 (150-450); RBC Distribution Width CV 13.3 % (11.6-14.6); RBC Distribution Width SD 45.5 fl (35.1-43.9); Red Blood Count 4.19 M/mm3 (4.2-5.4); White Blood Count 6.5 K/mm3 (4.4-11.0)
[2024-07-23 06:13] LABS: Bedside Glucose 116 mg/dL (74-106)
[2024-07-23 06:27] LABS: Anion Gap 6 (5-15); BUN 12 mg/dL (7-18); BUN/Creat Ratio 14.5 RATIO (10-20); Calcium,Total 9.8 mg/dL (8.5-10.1); Chloride 105 mmol/L (98-107); Creatinine, Serum 0.83 mg/dL (0.55-1.02); EST Glomerular Filtration Rate 71 mL/min (>60); Est Glom Filt Rate - Afr Amer 85 mL/min (>60); Glucose 109 mg/dL (74-106); Potassium 3.9 mmol/L (3.5-5.1); Sodium Level 134 mmol/L (136-145)
[2024-07-23 08:34] VITALS: BP 109/81; PULSE 82; RESP 18; TEMP 35.7; O2SAT 97
[2024-07-23] MEDS: FLUCONAZOLE 150 MG TABLET PO (08:37)
[2024-07-23] MEDS: metFORMIN HCl 500 MG Tablet PO ×2 (08:37→18:30)
[2024-07-23] MEDS: Potassium Chloride Oral Tablet 20 MEQ PO ×2 (08:37→18:31)
[2024-07-23] MEDS: Na Biphos/Potassium Phosphate PACKET 1 PACKET PO ×2 (08:37→20:46)
[2024-07-23] MEDS: Clotrimazole/Betamethasone 1 Tube 1 APPLIC TOPICAL ×2 (08:37→20:46)
[2024-07-23] MEDS: Acetaminophen 500 MG Tablet 1000 MG PO ×2 (09:45→20:50)
[2024-07-23] MEDS: Tuberculin,Purif.prot.deriv. 50 TU/ML Vial 0.1 ML ID (10:33)
[2024-07-23 11:41] VITALS: BMI 25.5
--- NOTE | 2024-07-23 13:40 | MDS.RN ---
Information for the MDS was obtained from review of the clinical record, interview of resident, staff, and direct observation of resident?s care.
[2024-07-23 16:53] LABS: Bedside Glucose 131 mg/dL (74-106)
[2024-07-24] MEDS: Acetaminophen 500 MG Tablet 1000 MG PO ×2 (02:50→22:31)
[2024-07-24] MEDS: Enoxaparin 40 MG/0.4 ML Syringe SC (05:44)
[2024-07-24] MEDS: NYSTATIN 500,000 UNIT/5 ML UDC 500000 UNIT PO ×4 (05:44→22:31)
[2024-07-24 06:25] LABS: Bedside Glucose 104 mg/dL (74-106)
[2024-07-24] MEDS: Potassium Chloride Oral Tablet 20 MEQ PO ×2 (08:39→17:22)
[2024-07-24] MEDS: metFORMIN HCl 500 MG Tablet PO ×2 (08:40→17:22)
[2024-07-24] MEDS: FLUCONAZOLE 150 MG TABLET PO (08:40)
[2024-07-24] MEDS: Clotrimazole/Betamethasone 1 Tube 1 APPLIC TOPICAL ×2 (08:40→22:32)
[2024-07-24] MEDS: Na Biphos/Potassium Phosphate PACKET 1 PACKET PO ×2 (08:41→22:31)
[2024-07-24 08:46] VITALS: BP 124/62; PULSE 70; RESP 18; O2SAT 99
--- NOTE | 2024-07-24 11:04 | NURSING ---
PER REPORT PT IN MORE PAIN AFTER THERAPY. TALKED TO PT AND ASKED HER IF SHE FEELS IF SHE NEEDS A LITTLE MORE PAIN MED DUE TO THE PAIN. PT STATED NO MENG FINE WITH THE HEAT/ICE AND WHAT EVER THERAPY PUTS ON ME THAT HAS LIKE THE LITTLE FINGERS TO HELP MESSAGE AREA. WILL CONTINUE TO MONITOR.
--- NOTE | 2024-07-24 11:11 | CASEMGMT ---
Plan of care meeting held with pt present. Therapy/oil and gas drafter/activities provided updates on progress. Pt is making progress with therapy. SW updated that MMO MCR next review is tomorrow and that insurance is expected to issues a last covered day. Team is recommending SNF placement. Pt adamantly stating she will not go to a SNF. Pt states that she has an aunt, Josefina Melendez, who is the same age as pt. Josefina's last week and Josefina is offering for pt to come and live with her. Josefina lives in [place], [place]. SW requested that pt and SW meet and place call to Josefina to discuss discharge plan. Pt will need help with medication management and finances. Pt needs some help with lower body dressing and occasionally needs help getting in and out of bed. Pt is able to complete toileting and bathing needs. Pt will not be allowed to drive once home. Pt has medical equipment at home that was her husbands, but has never gotten a walker herself from insurance. SW will meet with pt at a later time and attempt to call Josefina about discharge plan. IGNACIO Parrish
[2024-07-24] MEDS: Pneumococcal Vaccine 20 Valent 0.5 ML Syringe IM (11:12)
--- NOTE | 2024-07-24 11:16 | NURSING ---
PREVNAR 20 GIVEN IN RT DELT. PT TOLERATED WELL. WILL CONTINUE TO MONITOR.
[2024-07-24 13:30] VITALS: PULSE 88; RESP 18; O2SAT 97
[2024-07-24 15:59] VITALS: TEMP 36.1
[2024-07-24 17:03] LABS: Bedside Glucose 113 mg/dL (74-106)
[2024-07-25] MEDS: NYSTATIN 500,000 UNIT/5 ML UDC 500000 UNIT PO ×3 (05:58→17:11)
[2024-07-25] MEDS: Enoxaparin 40 MG/0.4 ML Syringe SC (05:58)
[2024-07-25 06:23] LABS: Bedside Glucose 102 mg/dL (74-106)
[2024-07-25] MEDS: Potassium Chloride Oral Tablet 20 MEQ PO ×2 (08:42→17:12)
[2024-07-25] MEDS: metFORMIN HCl 500 MG Tablet PO ×2 (08:42→17:12)
[2024-07-25] MEDS: Na Biphos/Potassium Phosphate PACKET 1 PACKET PO ×2 (08:43→20:28)
[2024-07-25] MEDS: FLUCONAZOLE 150 MG TABLET PO (08:43)
[2024-07-25] MEDS: Acetaminophen 500 MG Tablet 1000 MG PO ×2 (08:47→23:33)
[2024-07-25] MEDS: Clotrimazole/Betamethasone 1 Tube 1 APPLIC TOPICAL ×2 (08:49→20:28)
[2024-07-25 08:52] VITALS: BP 136/76; PULSE 78; RESP 18; O2SAT 99
--- NOTE | 2024-07-25 10:30 | CASEMGMT ---
Addendum entered by Heather Olvera 07/25/24 10:57: [facility] is able to accept pt with a start of care date of 07/29 or 07/31 depending on when pt discharges. Pt will receive PT/OT/SN for medication management. IGNACIO Parrish Original Note: Social Work SW met with pt to discuss discharge plan. Pt notified that clinicals have been submitted to insurance this morning and insurance will be reviewing case. SW anticipates that insurance may issue a discharge date upon this review and dc plans need to be confirmed. During POC meeting pt stated she would be going home with her aunt. Today, pt states her aunt's just and they are in the middle of arrangements and going here is not a good idea. Pt states she will be going to stay with her friend Kerry and Chin Garcia. Pt agreeable to call Kerry at this time. SW, Kerry and pt on speaker phone together. SW explained that pt may be discharged as early as Monday. SW reviewed pt's current functional ability when working with therapy. Kerry states that she plans for pt to come to her home to live and that Kerry can be present when pt showers and can assist with getting shoes and socks on and off. Pt is able to complete other ADLs. Kerry lives in a mobile home with a ramp entrance and states that there is room for patient there and has no concerns with pt coming to live with them and that pt can live there indefinatly. Kerry confirms pt has a rollator that is in the trunk of Kerry's car. Kerry also has a nuclear medicine technician that pt is able to use. Kerry states that she is able to provide transportation home on day of discharge. WALI discussed home health PT/OT with pt and Kerry and both are agreeable that this services can be set up. WALI offered to print a list of [facility] providers from the careport guide. Pt declines list. Referral made to [facility]. SW will await determination of acceptance. Plan: Pt to return home with friend Kerry Garcia, [facility] PT/OT IGNACIO Parrish
[2024-07-25 15:11] VITALS: TEMP 36.3
[2024-07-25 16:51] LABS: Bedside Glucose 114 mg/dL (74-106)
[2024-07-26 06:19] LABS: Bedside Glucose 93 mg/dL (74-106)
[2024-07-26 09:00] VITALS: BP 131/69; PULSE 86; RESP 16; TEMP 36.2; O2SAT 97
[2024-07-26] MEDS: Na Biphos/Potassium Phosphate PACKET 1 PACKET PO ×2 (09:29→21:52)
[2024-07-26] MEDS: metFORMIN HCl 500 MG Tablet PO ×2 (09:29→17:23)
[2024-07-26] MEDS: FLUCONAZOLE 150 MG TABLET PO (09:29)
[2024-07-26] MEDS: Potassium Chloride Oral Tablet 20 MEQ PO ×2 (09:29→17:23)
[2024-07-26] MEDS: Enoxaparin 40 MG/0.4 ML Syringe SC (09:30)
[2024-07-26] MEDS: Lidocaine 5% Patch 1 PATCH TOPICAL (09:30)
[2024-07-26] MEDS: Clotrimazole/Betamethasone 1 Tube 1 APPLIC TOPICAL ×2 (09:30→21:52)
[2024-07-26 14:45] VITALS: PULSE 86; RESP 16; O2SAT 97
[2024-07-26 16:53] LABS: Bedside Glucose 132 mg/dL (74-106)
[2024-07-26] MEDS: Acetaminophen 500 MG Tablet 1000 MG PO (17:25)
[2024-07-27 06:15] LABS: Bedside Glucose 124 mg/dL (74-106)
[2024-07-27] MEDS: Acetaminophen 500 MG Tablet 1000 MG PO ×3 (09:42→23:16)
[2024-07-27] MEDS: metFORMIN HCl 500 MG Tablet PO ×2 (09:42→17:34)
[2024-07-27] MEDS: Clotrimazole/Betamethasone 1 Tube 1 APPLIC TOPICAL ×2 (09:42→21:08)
[2024-07-27] MEDS: Lidocaine 5% Patch 1 PATCH TOPICAL (09:42)
[2024-07-27] MEDS: Na Biphos/Potassium Phosphate PACKET 1 PACKET PO ×2 (09:42→21:08)
[2024-07-27] MEDS: Potassium Chloride Oral Tablet 20 MEQ PO ×2 (09:42→17:34)
[2024-07-27] MEDS: Enoxaparin 40 MG/0.4 ML Syringe SC (09:43)
[2024-07-27 10:20] VITALS: BP 118/64; PULSE 80; RESP 16; TEMP 36.3; O2SAT 97
[2024-07-27 16:34] LABS: Bedside Glucose 104 mg/dL (74-106)
[2024-07-28 06:26] LABS: Bedside Glucose 104 mg/dL (74-106)
[2024-07-28] MEDS: metFORMIN HCl 500 MG Tablet PO ×2 (09:08→17:18)
[2024-07-28] MEDS: Lidocaine 5% Patch 1 PATCH TOPICAL (09:08)
[2024-07-28] MEDS: Na Biphos/Potassium Phosphate PACKET 1 PACKET PO ×2 (09:08→19:42)
[2024-07-28] MEDS: Potassium Chloride Oral Tablet 20 MEQ PO ×2 (09:08→17:18)
[2024-07-28] MEDS: Enoxaparin 40 MG/0.4 ML Syringe SC (09:09)
[2024-07-28] MEDS: Clotrimazole/Betamethasone 1 Tube 1 APPLIC TOPICAL ×2 (09:09→19:45)
[2024-07-28 10:00] VITALS: BP 104/61; PULSE 83; RESP 16; TEMP 36.3; O2SAT 98
[2024-07-28] MEDS: Acetaminophen 500 MG Tablet 1000 MG PO ×2 (13:15→23:14)
[2024-07-28 13:20] VITALS: PULSE 83; RESP 16; O2SAT 98
[2024-07-28 16:58] LABS: Bedside Glucose 113 mg/dL (74-106)
[2024-07-29 06:36] LABS: Bedside Glucose 109 mg/dL (74-106)
[2024-07-29] MEDS: Enoxaparin 40 MG/0.4 ML Syringe SC (09:18)
[2024-07-29] MEDS: Acetaminophen 500 MG Tablet 1000 MG PO ×2 (09:18→17:31)
[2024-07-29] MEDS: Potassium Chloride Oral Tablet 20 MEQ PO ×2 (09:19→17:31)
[2024-07-29] MEDS: Clotrimazole/Betamethasone 1 Tube 1 APPLIC TOPICAL ×2 (09:19→20:37)
[2024-07-29] MEDS: metFORMIN HCl 500 MG Tablet PO ×2 (09:19→17:31)
[2024-07-29] MEDS: Na Biphos/Potassium Phosphate PACKET 1 PACKET PO ×2 (09:19→20:37)
[2024-07-29] MEDS: Lidocaine 5% Patch 1 PATCH TOPICAL (09:20)
[2024-07-29 09:27] VITALS: BP 135/63; PULSE 86; RESP 16; O2SAT 96
[2024-07-29 15:05] VITALS: TEMP 36.7
[2024-07-29 16:34] LABS: Bedside Glucose 94 mg/dL (74-106)
--- NOTE | 2024-07-29 16:52 | NURSING ---
dr Sommer ordered MRI of LS spine w/out contrast. attempted to get preauth but closed d/t MLK, will attempt tomorrow.
[2024-07-29 20:35] VITALS: PULSE 72; O2SAT 97
[2024-07-30] MEDS: Acetaminophen 500 MG Tablet 1000 MG PO ×3 (01:27→20:35)
[2024-07-30 05:46] LABS: Absolute Lymphocyte Count 2.38 X10^3/uL (0.83-4.51); Absolute Neutrophil Count 3.8 X10^3/uL (2.0-7.7); Basophil# 0.08 X10^3/uL; Basophil% 1.2 % (0-1); Eosinophil# 0.27 X10^3/uL; Hematocrit 38.2 % (37-47); Hemoglobin 12.8 g/dL (12.0-15.0); Lymphocyte # 2.38 X10^3/ul (0.83-4.51); Lymphocyte % 34.9 % (19-41); Mean Corp Hgb Conc 33.5 g/dL (32-36); Mean Corpuscular Hgb 31.8 pg (27.0-32.0); Mean Platelet Vol. 9.7 fl (6.2-12.0); Monocyte% 4.4 % (0-10); NRBC Flagged by Analyzer 0 % (0-5); Neutrophil # 3.77 X10^3/uL (2.7-7.7); Neutrophil % 55.2 % (47-70); Platelet Count 331 K/mm3 (150-450); RBC Distribution Width CV 13.2 % (11.6-14.6); Red Blood Count 4.02 M/mm3 (4.2-5.4); White Blood Count 6.8 K/mm3 (4.4-11.0)
[2024-07-30 06:00] VITALS: PULSE 71; O2SAT 94
[2024-07-30 06:24] LABS: Anion Gap 7 (5-15); BUN 10 mg/dL (7-18); BUN/Creat Ratio 11.9 RATIO (10-20); Calcium,Total 9.5 mg/dL (8.5-10.1); Chloride 107 mmol/L (98-107); Creatinine, Serum 0.84 mg/dL (0.55-1.02); EST Glomerular Filtration Rate 69 mL/min (>60); Est Glom Filt Rate - Afr Amer 84 mL/min (>60); Estimated Creatinine Clearance 54.21 ml/min; Glucose 103 mg/dL (74-106); Potassium 4.1 mmol/L (3.5-5.1); Sodium Level 136 mmol/L (136-145)
[2024-07-30 06:46] LABS: Bedside Glucose 90 mg/dL (74-106)
[2024-07-30] MEDS: Potassium Chloride Oral Tablet 20 MEQ PO ×2 (08:50→17:51)
[2024-07-30] MEDS: Lidocaine 5% Patch 1 PATCH TOPICAL (08:50)
[2024-07-30] MEDS: metFORMIN HCl 500 MG Tablet PO ×2 (08:50→17:50)
[2024-07-30] MEDS: Na Biphos/Potassium Phosphate PACKET 1 PACKET PO ×2 (08:51→20:36)
--- NOTE | 2024-07-30 10:06 | NURSING ---
Addendum entered by Nahed Brown 07/31/24 13:26: Received auth for MRI. Auth #[id number]. Faxed order and MRI completed questions. Original Note: Called to get MRI auth, [employer] requiring clinical data to be faxed to [phone]. Tracking #[id number]. Clinical info faxed.
[2024-07-30] MEDS: Clotrimazole/Betamethasone 1 Tube 1 APPLIC TOPICAL ×2 (10:18→20:37)
[2024-07-30] MEDS: Enoxaparin 40 MG/0.4 ML Syringe SC (10:18)
[2024-07-30 12:20] VITALS: BP 131/61; PULSE 80; RESP 14; TEMP 36.1; O2SAT 92
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
--- NOTE | 2024-07-30 14:14 | RAD_ITS ---
STUDY: X-RAY - PELVIS REASON FOR EXAM: Female, 79 years old. L buttock / hip pain TECHNIQUE: One view of the pelvis was obtained. COMPARISON: None. FINDINGS: There is a non-specific bowel gas pattern. Normal visualized soft tissue structures. There is diffuse demineralization of the osseous structures. There is narrowing with cortical sclerosis and osteophyte formation of the sacroiliac joint consistent with degenerative osteoarthritic changes. Normal visualized bilateral superior and inferior pubic rami. Normal pubic symphysis. Normal ischial tuberosities. Normal visualized right femoral head. Normal right acetabulum. There is mild articular joint space narrowing of the right hip. Normal visualized left femoral head. Normal left acetabulum. There is mild articular joint space narrowing of the left hip. RAD/Pelvis 1 or 2 Views IMPRESSION: Osteopenia with age consistent bilateral hip and SI joint arthrosis. No demonstrated fracture or suspicious osseous lesion. However, hip and pelvic fractures in patients of this age can be subtle, if there is strong clinical suspicion of a fracture, recommend further evaluation with CT Electronically Signed: Abram Villeda MD at 20:55 EST ,
[2024-07-30 16:46] LABS: Bedside Glucose 115 mg/dL (74-106)
[2024-07-31] MEDS: Acetaminophen 500 MG Tablet 1000 MG PO ×3 (03:28→20:47)
[2024-07-31 06:19] LABS: Bedside Glucose 103 mg/dL (74-106)
[2024-07-31] MEDS: Lidocaine 5% Patch 1 PATCH TOPICAL (08:39)
[2024-07-31] MEDS: Na Biphos/Potassium Phosphate PACKET 1 PACKET PO ×2 (08:39→20:48)
[2024-07-31] MEDS: Enoxaparin 40 MG/0.4 ML Syringe SC (08:40)
[2024-07-31] MEDS: Potassium Chloride Oral Tablet 20 MEQ PO ×2 (08:40→18:20)
[2024-07-31] MEDS: metFORMIN HCl 500 MG Tablet PO ×2 (08:40→18:20)
[2024-07-31] MEDS: Clotrimazole/Betamethasone 1 Tube 1 APPLIC TOPICAL ×2 (08:43→20:45)
[2024-07-31] MEDS: traMADol 50 MG Tablet PO ×2 (08:52→18:23)
[2024-07-31 15:46] VITALS: BP 126/63; PULSE 78; RESP 16; TEMP 36.6; O2SAT 94
--- NOTE | 2024-07-31 16:07 | CASEMGMT ---
Addendum entered by Humaira Whyte 08/01/24 16:12: ST added to HHC order. Updated [facility]. Addendum entered by Humaira Whyte 07/31/24 16:18: SW inquired about completing advanced directives as currently son would be NOK. Pt unsure about completion at this time. SW provided rack card to schedule for appt if pt wishes to complete after DC. Original Note: Social Work Insurance issued LCD 08/02, DC 08/03. SW spoke with pt to confirm readiness for DC and destination. Pt confirmed she is discharging to her friend's Kerry and Chin's house. Pt does not know friends address. SW to contact Kerry to get address for HH services. Pt confirmed still the use of [facility] HHC and no DME. Kerry to transport for DC. - SW left VM with Kerry requesting return call. WALI updated [facility] and added SW to order. Plan: DC 08/03 to friend's house, [facility] PT/OT/SN/JAYLON Marrero
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
--- NOTE | 2024-07-31 16:54 | NURSING ---
off floor for MRI
--- NOTE | 2024-07-31 18:28 | NURSING ---
back from MRI
[2024-07-31 19:04] LABS: Bedside Glucose 100 mg/dL (74-106)
[2024-07-31 20:00] VITALS: PULSE 74; O2SAT 94
[2024-08-01 06:53] LABS: Bedside Glucose 101 mg/dL (74-106)
[2024-08-01] MEDS: Lidocaine 5% Patch 1 PATCH TOPICAL (09:39)
[2024-08-01] MEDS: Potassium Chloride Oral Tablet 20 MEQ PO ×2 (09:40→17:40)
[2024-08-01] MEDS: metFORMIN HCl 500 MG Tablet PO ×2 (09:40→17:40)
[2024-08-01] MEDS: Enoxaparin 40 MG/0.4 ML Syringe SC (09:41)
[2024-08-01] MEDS: Na Biphos/Potassium Phosphate PACKET 1 PACKET PO ×2 (09:42→21:56)
[2024-08-01] MEDS: Clotrimazole/Betamethasone 1 Tube 1 APPLIC TOPICAL ×2 (09:46→21:56)
[2024-08-01 09:52] VITALS: BP 126/70; PULSE 79; RESP 18; O2SAT 95
--- NOTE | 2024-08-01 14:20 | NURSING ---
Addendum entered by Ronaldo Anaya 08/01/24 17:10: OFFICE CALLED BACK AND STATED TO JUST HAVE PT FOLLOW UP AFTER D/C. Original Note: CALLED OFFICE AND LEFT MESSAGE WITH NURSE TO TELL HIM THAT THE PAIN MED IS WORKING GOOD PER PT AND IF HE WANTED HER TO FOLLOW UP AFTER DISCHARGE ON 08/03/24. NURSE STATED THAT IS OUT TILL MONDAY AND WILL GET BACK WITH TCU WHEN SHE HEARS FROM HIM. RN AWARE.
[2024-08-01 14:22] VITALS: TEMP 36.6
[2024-08-01 16:57] LABS: Bedside Glucose 129 mg/dL (74-106)
[2024-08-01] MEDS: traMADol 50 MG Tablet PO (17:39)
[2024-08-01] MEDS: Acetaminophen 500 MG Tablet 1000 MG PO (21:58)
[2024-08-01 22:00] VITALS: PULSE 90; O2SAT 94
[2024-08-02 06:21] LABS: Bedside Glucose 107 mg/dL (74-106)
[2024-08-02] MEDS: metFORMIN HCl 500 MG Tablet PO ×2 (07:59→17:46)
[2024-08-02] MEDS: Lidocaine 5% Patch 1 PATCH TOPICAL (07:59)
[2024-08-02] MEDS: Na Biphos/Potassium Phosphate PACKET 1 PACKET PO ×2 (07:59→21:44)
[2024-08-02] MEDS: Potassium Chloride Oral Tablet 20 MEQ PO ×2 (08:03→17:46)
[2024-08-02] MEDS: traMADol 50 MG Tablet PO ×2 (08:03→21:47)
[2024-08-02] MEDS: Enoxaparin 40 MG/0.4 ML Syringe SC (08:04)
[2024-08-02] MEDS: Clotrimazole/Betamethasone 1 Tube 1 APPLIC TOPICAL ×2 (08:07→21:44)
[2024-08-02 08:09] VITALS: BP 113/72; PULSE 76; RESP 18; O2SAT 96
--- NOTE | 2024-08-02 12:51 | MDS.RN ---
Pain assessment for MDS complete.
[2024-08-02 16:00] VITALS: TEMP 36.3
--- NOTE | 2024-08-02 16:22 | CASEMGMT ---
Social Work SW completed BIMS (06/23) and PHQ- 2 () for MDS assessment. Humaira Whyte, ROLL BUCKER TECHNICAL ASSISTANT
[2024-08-02 16:38] LABS: Bedside Glucose 102 mg/dL (74-106)
[2024-08-03 06:00] LABS: Bedside Glucose 97 mg/dL (74-106)
[2024-08-03 09:20] VITALS: BP 124/64; PULSE 74; RESP 16; TEMP 36.2; O2SAT 93
[2024-08-03] MEDS: Potassium Chloride Oral Tablet 20 MEQ PO (09:21)
[2024-08-03] MEDS: Na Biphos/Potassium Phosphate PACKET 1 PACKET PO (09:21)
[2024-08-03] MEDS: metFORMIN HCl 500 MG Tablet PO (09:21)
[2024-08-03] MEDS: Enoxaparin 40 MG/0.4 ML Syringe SC (09:21)
[2024-08-03] MEDS: Lidocaine 5% Patch 1 PATCH TOPICAL (09:21)
[2024-08-03] MEDS: Clotrimazole/Betamethasone 1 Tube 1 APPLIC TOPICAL (09:22)
[2024-08-03 10:00] VITALS: BP 124/64; PULSE 74; RESP 16; TEMP 36.2; O2SAT 93
== END 2024-08-03 13:16 | disposition home health service (06) | DRG 949 ==
PROVIDERS: Admitting Provider Family Medicine Geriatric Medicine; PCP Internal Medicine; Referring Provider Family Medicine Geriatric Medicine; Visit Provider Family Medicine Geriatric Medicine
DX: T42.8X Poisoning by, adverse effect of and underdosing of antiparkinsonism drugs and other central muscle-tone depressants (principal); N39.0 Urinary tract infection, site not specified; B37.0 Candidal stomatitis; E83.39 Other disorders of phosphorus metabolism; E11.65 Type 2 diabetes mellitus with hyperglycemia; E03.9 Hypothyroidism, unspecified; B35.6 Tinea cruris; I10 Essential (primary) hypertension; E87.6 Hypokalemia; M25.552 Pain in left hip; Z87.891 Personal history of nicotine dependence; Z79.84 Long term (current) use of oral hypoglycemic drugs; Z79.899 Other long term (current) drug therapy; V99.XXXD Unspecified transport accident, subsequent encounter; M46.1 Sacroiliitis, not elsewhere classified; Z23 Encounter for immunization
CPT/HCPCS: 36415; 72170; 80048; 82962; 83036; 85025; 90480; 90662; 90677; 91322; 92507; 92523; 97032; 97110; 97116; 97129; 97130; 97162; 97166; 97530; 97535; 97802; A4216

== ENCOUNTER → 2024-07-31 | Outpatient (CLI) | payer MEDICARE, SELFPAY ==
--- NOTE | 2024-07-31 17:00 | MRI_ITS ---
EXAM: MR LUMBAR SPINE WITHOUT INTRAVENOUS CONTRAST CLINICAL INDICATION: PAIN TECHNIQUE: Multiplanar and multisequence MR images of the lumbar spine without intravenous contrast. COMPARISON: Lumbar spine radiograph, 07/12/2024. FINDINGS: VERTEBRAE: Acute L3 superior end plate compression fracture with less than 50% vertebral body height loss and minimal retropulsion of the posterior cortex. Edema without definite fracture propagates through the bilateral pedicles. No definite posterior element fracture is identified. Multilevel endplate osteophytosis and facet arthrosis. Straightening of the expected lumbar lordosis. Mild edema of the inferior endplate of L2 is likely degenerative in nature without definitive L2 fracture identified. No spondylolisthesis. SPINAL CORD: No significant abnormality. Normal position and signal intensity of the conus medullaris. SOFT TISSUES: Edema within the anterior paraspinal soft tissues at the level of L3. DISCS/SPINAL CANAL/NEURAL FORAMINA: L1-L2: Right central to foraminal disc herniation superimposed upon a disc bulge and moderate bilateral facet arthrosis resulting in mild spinal canal stenosis and moderate right greater than left neural foraminal narrowing. L2-L3: Disc bulge and moderate to severe bilateral facet arthrosis resulting in mild spinal canal stenosis and moderate bilateral neural foraminal narrowing. L3-L4: Disc bulge and severe bilateral facet arthrosis contributing to mild to moderate spinal canal stenosis and moderate to severe bilateral neural foraminal narrowing. At least abutment of the bilateral L3 nerve roots. L4-L5: Disc bulge with superimposed central disc herniation and severe bilateral facet arthrosis with ligamentum flavum thickening resulting in severe spinal canal stenosis and moderate to severe bilateral neural foraminal narrowing crowding of the intrathecal nerve roots. No distinct nerve root impingement. L5-S1: Moderate bilateral facet arthrosis. Mild spinal canal stenosis and moderate to severe bilateral neural foraminal narrowing with at least abutment of the bilateral L5 nerve roots. MRI/Spine Lumbar (Routine) IMPRESSION: 1. Acute L3 superior end plate compression fracture with less than 50% vertebral body height loss and minimal retropulsion of the posterior cortex. Edema without definite fracture propagates through the bilateral pedicles. No definite posterior element fracture is identified. Consider follow-up CT. 2. Mild edema of the inferior endplate of L2 is likely degenerative in nature without definitive L2 fracture identified. 3. Multilevel degenerative changes resulting in variable degrees of spinal canal and neural foraminal stenosis. No definite nerve root impingement. Electronically Signed: Nelson Eubanks DO at 20:09 EST ,
== END | disposition home or self-care (01) ==
LOC: MRI 16:37
PROVIDERS: PCP Internal Medicine; Referring Provider Family Medicine Geriatric Medicine; Visit Provider Family Medicine Geriatric Medicine
DX: M54.50 Low back pain, unspecified (principal)
CPT/HCPCS: 72148